=== PATIENT | male | born 1960 | race African-American/Black ===

== ENCOUNTER → 2017-09-23 | Day surgery (SDC) | payer OTHER ==
[~2017-09-23] MED LIST: ALFU10TA2 PO; BUPIVACAINE HCL PF 0.5% 30 ML VIAL ONE; CIAL5TAB PO; COZA50TA PO; GINK40TA2; GLUC1000 PO; HYDR-2768 PO; KETOROLAC TROMETHAMINE 30 MG/ML (IVP) VIAL IV PUSH ONE; LACTATED RINGER'S 1000 ML INJ 1,000 ML ONE; MEPERIDINE HCL 25 MG/ML VIAL ONE; MEVA40TA PO; MIDAZOLAM HCL 2 MG/2 ML VIAL ONE; MOBI15TA PO; NAPR500 PO; ONDANSETRON HCL 4 MG/2 ML VIAL IV PUSH ONE; PROPOFOL 200 MG/20 ML AMP IV ONE; PROS5TAB2 PO; TRAM100T19 PO; VITA400C28; ceFAZolin 2 GM PREMIX 50 ML ONE
--- NOTE | 2017-09-23 12:06 | MP ---
cc: LUPE VIEYRA DATE OF SURGERY: 09/23/[address] Lupe Vieyra. EDUCATIONAL ASSISTANT TEACHER None. PREOPERATIVE DIAGNOSIS Right foot hallux rigidus. POSTOPERATIVE DIAGNOSIS Right foot hallux rigidus. PROCEDURE PERFORMED Right foot first metatarsal phalangeal joint fusion. PATHOLOGY SENT None. ANESTHESIA General. HEMOSTASIS Pneumatic calf tourniquet at 250 mmHg for 68 minutes. ESTIMATED BLOOD LOSS Less than 5 mL. MATERIALS USED Include Arthrex plate and headless compression screw. INJECTABLES 10 cc of 0.5% Marcaine plain. COMPLICATIONS None. INDICATIONS Mr. Baum is a 57-year-old male patient who has exhausted conservative efforts for his painful first metatarsal phalangeal joint osteoarthritis. He has elected for surgical intervention at this time. We discussed surgical options and the patient is agreeable to a first MPJ fusion. The consent was signed. The procedure was explained. No guarantees were given. PROCEDURE Under mild sedation the patient was brought into the operating room, placed on the operating table in a supine position. Following IV sedation a pneumatic calf tourniquet was placed on the right calf. The leg was then scrubbed, prepped and draped in the usual aseptic manner. An Esmarch bandage was used to exsanguinate the right lower extremity. The pneumatic ankle tourniquet was then inflated to 250 mmHg. Attention was then directed to the dorsal aspect of the first metatarsal phalangeal joint. A linear longitudinal incision was created, deepened through skin and subcutaneous tissue with care being taken to identify and retract any vital neurovascular structures. The incision was deepened to the level of the joint capsule where there was a copious amount of spurring and greater than 50% cartilage denuded from the metatarsal head as well as the phalangeal base. The dorsal and medial bone spurs were removed using a rongeur and the apposing surfaces were cleansed of all cartilage using the Arthrex cup and cone reamers. The apposing surfaces were then retrograde drilled with an 0.062 K-wire. The area was flushed with copious amounts of sterile saline. A 3.0 fully-threaded headless screw was inserted from the distal medial aspect of the hallux into the proximal lateral aspect of first metatarsal joint under fluoroscopy, noting excellent alignment of the joint and placement of the screw. An appropriately sized Arthrex six-hole plate was then selected and applied to the dorsal aspect of the area at the fusion site. This is again checked under fluoroscopy clinically and radiographically. The hardware appeared to be in good position and the first ray was anatomically rectus. The area was flushed with copious amounts of sterile saline. Deep and subcutaneous tissues were closed using 3-0 Monocryl. The skin was closed using 3-0 Prolene. 10 cc of 0.5% Marcaine plain was injected around the procedure site. The pneumatic tourniquet was released. There was a prompt hyperemic response to all digits to the right foot. The patient tolerated the procedure and anesthesia well. Sterile dressing of Adaptic, 4x4s, and a well-padded posterior splint was applied. He will recover in the PACU for a period time before being discharged home with written and oral postoperative instructions. Lupe STEVE/NATHANIEL /11:19 AM /11:35 AM MTDD
== END | disposition home or self-care (01) ==
LOC: ESDC 08:43
PROVIDERS: ATTEND Podiatrist Foot & Ankle Surgery
DX: M20.21 Hallux rigidus, right foot (principal)
CPT/HCPCS: 01480; 28750; 73630; 76000; C1713; J0690; J1885; J2175; J2250; J2405; J3010; J7120

== ENCOUNTER 2018-04-09 06:19 | Day surgery (SDC) | payer OTHER ==
[~2018-04-09] VITALS: Ht 188 cm; Wt 134.4 kg
[~2018-04-09 06:19] MED LIST changes: -BUPIVACAINE HCL PF 0.5% 30 ML VIAL ONE; -KETOROLAC TROMETHAMINE 30 MG/ML (IVP) VIAL IV PUSH ONE; -LACTATED RINGER'S 1000 ML INJ 1,000 ML ONE; -MEPERIDINE HCL 25 MG/ML VIAL ONE; -MIDAZOLAM HCL 2 MG/2 ML VIAL ONE; -ONDANSETRON HCL 4 MG/2 ML VIAL IV PUSH ONE; -PROPOFOL 200 MG/20 ML AMP IV ONE; -ceFAZolin 2 GM PREMIX 50 ML ONE
[2018-04-09] MEDS ORDERED: NS 1000P @30 MLS/HR (KVO) IV SCH (06:45)
[2018-04-09 06:53] VITALS: BP 205/119; PULSE 86; RESP 18; TEMP 98.2; O2SAT 98
[2018-04-09] MEDS ORDERED: EMPA1TAB3 PO (07:05)
[2018-04-09] MEDS ORDERED: ALFU10TA2 PO (07:05)
[2018-04-09] MEDS ORDERED: ECASA81 PO (07:05)
[2018-04-09] MEDS ORDERED: ROSU1TAB8 PO (07:05)
[2018-04-09] MEDS ORDERED: LOSA25TA PO (07:05)
[2018-04-09] MEDS ORDERED: TIMO0.5S30 EACH EYE (07:05)
[2018-04-09] MEDS ORDERED: CIAL5TAB PO (07:05)
[2018-04-09] MEDS ORDERED: VICT18IN SQ (07:05)
[2018-04-09] MEDS ORDERED: METF1000 PO (07:05)
[2018-04-09] MEDS ORDERED: MIDAZOLAM HCL 2 MG/2 ML VIAL ONE (07:48)
[2018-04-09] MEDS ORDERED: HEPARIN-NS/PF INJ 1,000 ML ONE (07:48)
[2018-04-09] MEDS ORDERED: ATROPINE SULFATE 1 MG/ML VIAL IV PUSH PRN (08:30)
[2018-04-09] MEDS ORDERED: SODIUM CHLOR 0.9% 250 ML INJ 250 ML IV PRN (08:30)
[2018-04-09] MEDS ORDERED: ONDANSETRON ODT 4 MG TAB PO PRN (08:30)
[2018-04-09] MEDS ORDERED: MISC INFORMATION XX ONE (08:30)
[2018-04-09] MEDS ORDERED: SODIUM CHLORIDE 0.9% FLUSH 10 ML FLUSH IV FLUSH PRN (08:30)
--- NOTE | 2018-04-09 08:47 | MA ---
cc: Darrian Barker MD DATE: 04/09/2018 PROCEDURE PERFORMED: Catheterization report. PROCEDURE: The patient was prepped and draped in the usual fashion. A 6 sheath was inserted percutaneously in the right femoral artery. Coronary angiography was done with Jazmine preformed catheters. RESULTS: The aortic pressure was 140/80. The left main coronary was normal. The left anterior descending artery was normal throughout its course. The circumflex artery was normal throughout its course. The right coronary artery is anatomically dominant and normal throughout its course. CONCLUSIONS: Normal coronary arteries. At the end of the procedure, the groin was closed with Angio-Seal technique. MD IRASEMA Easley/DANNA , 08:40 AM , 08:45 AM
[2018-04-09] MEDS ORDERED: SODIUM CHLORIDE 0.9% FLUSH 10 ML FLUSH IV FLUSH SCH (09:00)
== END 2018-04-09 10:57 | disposition home or self-care (01) ==
LOC: HDIC 06:19 → HDOC 06:19
PROVIDERS: ATTEND Internal Medicine Cardiovascular Disease
DX: R94.39 Abnormal result of other cardiovascular function study (principal); I10 Essential (primary) hypertension; E78.5 Hyperlipidemia, unspecified; R07.89 Other chest pain; N40.1 Benign prostatic hyperplasia with lower urinary tract symptoms; N13.8 Other obstructive and reflux uropathy; F41.9 Anxiety disorder, unspecified; R10.9 Unspecified abdominal pain; H25.13 Age-related nuclear cataract, bilateral; E11.65 Type 2 diabetes mellitus with hyperglycemia; K14.9 Disease of tongue, unspecified; R60.0 Localized edema; E55.9 Vitamin D deficiency, unspecified; H47.393 Other disorders of optic disc, bilateral; N52.9 Male erectile dysfunction, unspecified; K64.8 Other hemorrhoids
CPT/HCPCS: 93454; 99152; 99153; C1760; C1769; C1893; G0269; J1644; J2250; G0278